=== PATIENT | female | born 1995 | race Caucasian/White ===

== ENCOUNTER 2022-07-22 20:24 | Inpatient (IN) | payer SELFPAY ==
[~2022-07-22] VITALS: Ht 165.1 cm; Wt 63.6 kg
[2022-07-22 22:18] LABS: Basophils # (auto) 0 10 ^3/uL (0-0.2); Basophils % (auto) 0.1 % (0.0-2.0); Eosinophils # (auto) 0 10 ^3/uL (0-0.8); Eosinophils % (auto) 0.1 % (0.0-7.0); Monocytes # (auto) 0.3 10 ^3/uL (0-1.3); Red Cell Distribution Width 16.3 % (11.8-14.3)
[2022-07-22 22:19] LABS: Hematocrit 36.5 % (36.0-46.0); Lymphocytes # (auto) 0.7 10 ^3/uL (0.4-5.4); Lymphocytes % (auto) 9.4 % (10.0-50.0); Mean Corpuscular Hemoglobin 25.3 pg (28.0-32.0); Mean Corpuscular Hgb Conc. 32.8 g/dL (32.0-36.0); Mean Corpuscular Volume 76.9 fL (80.0-100.0); Monocytes % (auto) 3.5 % (0.0-12.0); Neutrophils # (auto) 6.7 10 ^3/uL (1.6-8.6); Neutrophils % (auto) 86.9 % (37.0-80.0); Red Blood Cells 4.74 10^6/uL (4.0-5.20); White Blood Cell 7.8 10^3/uL (4.4-10.8)
[2022-07-22 22:48] LABS: Alanine Aminotransferase 18 U/L (13-56); Alkaline Phosphatase 105 U/L (45-117); Anion Gap 11 (5-15); Aspartate Aminotransferase 21 U/L (15-37); BUN/Creatinine Ratio 17.9; Blood Urea Nitrogen 12 mg/dL (7-18); Calcium 8.7 mg/dL (8.5-10.1); Carbon Dioxide 26 mmol/L (21-32); Chloride 103 mmol/L (98-107); GFR African American 135 mL/min; GFR Non-African American 111 mL/min; Glucose 119 mg/dL (74-106); Potassium 3.9 mmol/L (3.5-5.1); Sodium 140 mmol/L (136-145)
[2022-07-22 22:49] LABS: Albumin 3.5 g/dL (3.4-5.0); Bilirubin, Total 0.2 mg/dL (0.2-1.0); Lipase 67 U/L (73-393); Total Protein 8.1 g/dL (6.4-8.2)
[2022-07-22 23:19] LABS: Urine Amorphous Crystal MOD /hpf (None Seen); Urine Bacteria MOD /hpf (None Seen); Urine Blood 3+ /uL (Negative); Urine Mucus FEW (None Seen); Urine Specific Gravity 1.025 (1.001-1.035); Urine WBC 7 /hpf (0 - 5)
[2022-07-23] MEDS ORDERED: HYDROmorphone HCL 2 MG/ML VL/or syr IV ONE (01:00)
[2022-07-23] MEDS ORDERED: ONDANSETRON HCL 4 MG/2 ML VIAL IV ONE (01:00)
[2022-07-23] MEDS: SODIUM CHLORIDE 0.9% 1,000 ML IV SCH ×2 (04:10→18:23)
[2022-07-23] MEDS: MORPHINE SULFATE INJ 2 MG/ml SYRG IV PRN ×4 (04:11→21:37)
[2022-07-23] MEDS: ONDANSETRON HCL 4 MG/2 ML VIAL IV PRN ×2 (04:12→08:44)
[2022-07-23 07:36] VITALS: BP 130/96
[2022-07-23 08:00] VITALS: BP 130/96
[2022-07-23 08:55] VITALS: BP 130/96
[2022-07-23] MEDS ORDERED: GASTROGRAFIN 120 ML SOL ONE (10:35)
[2022-07-23] MEDS ORDERED: PANTOPRAZOLE 40 MG/10 ML VIAL INJ IV ONE (10:45)
[2022-07-23] MEDS ORDERED: cefTRIAXone 1GM/50ML D5W 50 ML IV ONE (10:45)
[2022-07-23 12:52] VITALS: BP 116/87
[2022-07-23] MEDS ORDERED: LORazepam 0.5 MG TAB PO PRN (16:15)
[2022-07-23 17:00] VITALS: BP 125/84
[2022-07-23 22:00] VITALS: BP 116/83
[2022-07-24] MEDS: ONDANSETRON HCL 4 MG/2 ML VIAL IV PRN ×3 (01:24→17:50)
[2022-07-24] MEDS: MORPHINE SULFATE INJ 2 MG/ml SYRG IV PRN ×2 (02:05→17:49)
[2022-07-24] MEDS: SODIUM CHLORIDE 0.9% 1,000 ML IV SCH (02:14)
[2022-07-24] MEDS ORDERED: KETOROLAC TROMETH 30 MG/ML 1ML VIAL IV ONE (03:15)
[2022-07-24 05:00] VITALS: BP 112/82
[2022-07-24 08:39] VITALS: BP 112/82
[2022-07-24] MEDS ORDERED: cefTRIAXone 1GM/50ML D5W 50 ML IV SCH (09:00)
[2022-07-24] MEDS ORDERED: PANTOPRAZOLE 40 MG/10 ML VIAL INJ IV SCH (10:00)
[2022-07-24] MEDS ORDERED: GASTROGRAFIN 120 ML SOL ONE (10:03)
[2022-07-24 13:29] LABS: Basophils # (auto) 0 10 ^3/uL (0-0.2); Eosinophils # (auto) 0.1 10 ^3/uL (0-0.8); Eosinophils % (auto) 1.5 % (0.0-7.0); Hemoglobin 12.3 g/dL (12.2-16.2); Lymphocytes # (auto) 1.8 10 ^3/uL (0.4-5.4); Neutrophils # (auto) 4.2 10 ^3/uL (1.6-8.6)
[2022-07-24 13:32] LABS: Basophils % (auto) 0.1 % (0.0-2.0); Hematocrit 39.5 % (36.0-46.0); Lymphocytes % (auto) 27.2 % (10.0-50.0); Mean Corpuscular Hemoglobin 24.5 pg (28.0-32.0); Mean Corpuscular Hgb Conc. 31.2 g/dL (32.0-36.0); Mean Corpuscular Volume 78.5 fL (80.0-100.0); Monocytes # (auto) 0.5 10 ^3/uL (0-1.3); Monocytes % (auto) 8.2 % (0.0-12.0); Nucleated Red Blood Cells % 0.1 %; Red Blood Cells 5.03 10^6/uL (4.0-5.20); Red Cell Distribution Width 16.5 % (11.8-14.3); White Blood Cell 6.6 10^3/uL (4.4-10.8)
[2022-07-24 14:03] LABS: Calcium 9.2 mg/dL (8.5-10.1); Potassium 3.8 mmol/L (3.5-5.1)
[2022-07-24 14:07] LABS: BUN/Creatinine Ratio 20.5
[2022-07-24 17:49] VITALS: BP 127/62
[2022-07-24 19:05] LABS: Amphetamine Screen, Urine POSITIVE (NEGATIVE); Barbiturate Scree,Urine NEGATIVE (NEGATIVE); Benzodiazephine Screen, Urine NEGATIVE (NEGATIVE); Cannabinoid Screen, Urine NEGATIVE (NEGATIVE); Cocaine Screen, Urine NEGATIVE (NEGATIVE); Opiate Scree,Urine POSITIVE (NEGATIVE); Phencyclidine Screen, Urine NEGATIVE (NEGATIVE)
== END 2022-07-24 18:52 | disposition left against medical advice (07) | DRG 388 ==
LOC: ER 20:24 → OVERFLOW 07-23 03:43 → WEST WING 07-23 07:49
PROVIDERS: ADMIT Nurse Practitioner; ATTEND Family Medicine
DX: K56.609 Unspecified intestinal obstruction, unspecified as to partial versus complete obstruction (principal); U07.1 COVID-19; N39.0 Urinary tract infection, site not specified; E86.0 Dehydration; F15.10 Other stimulant abuse, uncomplicated; Z53.29 Procedure and treatment not carried out because of patient's decision for other reasons
CPT/HCPCS: 36415; 74250; 80048; 80053; 80307; 81001; 81025; 83690; 85025; 87086; 87088; 87426; 96374; 96375; C9113; G0378; J0696; J1885; J2405